=== PATIENT | female | born 1985 | race Hispanic/Latino ===

== ENCOUNTER 2018-04-02 17:59 | Emergency (ER) | payer BC, OTHER ==
[2018-04-02] MEDS ORDERED: METOCLOPRAMIDE 10 MG/2mL INJ ONE (18:44)
[2018-04-02] MEDS ORDERED: NA CHLORIDE 0.9% 1,000 ML ONE (18:44)
[2018-04-02] MEDS ORDERED: DIPHENHYDRAMINE 50 MG/ML VIAL ONE (18:46)
[2018-04-02 18:56] LABS: Absolute Lymphocytes (CBC) 1.9 K/uL (0.7-4.9); Absolute Monocytes 0.9 K/uL (0.1-1.3); Absolute Neutrophil 10.1 K/uL (1.8-8.0); Basophils % 0.5 % (0-1.3); Eosinophils % 0.4 % (0-4.4); Hematocrit 40.2 % (36.0-45.0); Lymphocytes % 14.9 % (15.3-44.8); MPV 8.2 fL (7.6-11.3); Monocytes % 6.6 % (3.3-12.3); RBC Red Blood Cell Count 4.44 M/uL (3.86-4.86)
--- NOTE | 2018-04-02 19:06 | RAD REPORT ---
EXAM DESCRIPTION: CT - Head Brain Wo Cont - 04/02/2018 6:55 pm CLINICAL HISTORY: Left-sided headache COMPARISON: None. TECHNIQUE: Axial 5 mm thick images of the head were obtained without IV contrast. All CT scans are performed using dose optimization technique as appropriate and may include automated exposure control or mA/KV adjustment according to patient size. FINDINGS: No intracranial hemorrhage, mass, edema or shift of mid-line structures. No acute infarcti on changes seen. No abnormal extra-axial fluid collections. Ventricles are normal. Mastoid air cells and visualized portions of the paranasal sinuses are clear. No acute bony findings. IMPRESSION: Negative non-contrast CT head examination.
[2018-04-02 19:10] LABS: BUN Blood Urea Nitrogen 9 mg/dL (7-18); Bicarbonate 23 mmol/L (21-32); Glucose Level 99 mg/dL (74-106); Potassium 3.4 mmol/L (3.5-5.1); Sodium Level 138 mmol/L (136-145)
--- NOTE | 2018-04-02 20:18 | RAD REPORT ---
EXAM DESCRIPTION: CT - Head angio - 04/02/2018 8:00 pm CLINICAL HISTORY: Left-sided, photophobia, nausea and vomiting TECHNIQUE: During dynamic enhancement using nonionic IV contrast, axial 1 millimeter thick images of the head were obtained. Sagittal and axial reconstruction images were generated using maximum intens ity projection protocol and reviewed. All CT scans are performed using dose optimization technique as appropriate and may include automated exposure control or mA/KV adjustment according to patient size. FINDINGS: No aneurysm or vascular malformation identified. Major venous sinuses are patent. No stenosis, named branch occlusion, vasculitis or other significant vascular finding identifiable. T he anterior cerebral, middle cerebral and posterior cerebral artery show no suspicious findings. No b asilar or distal vertebral artery suspicious finding. The cavernous portions of each internal carotid artery show tortuosity but otherwise unremarkable. IMPRESSION: Negative CT angio head examination.
--- NOTE | 2018-04-02 20:19 | RAD REPORT ---
EXAM DESCRIPTION: CT - Neck Angio - 04/02/2018 8:08 pm TECHNIQUE: During dynamic enhancement using nonionic IV contrast, axial 2 mm thick images of the nec k were obtained. Sagittal and axial reconstruction images were generated and reviewed. Reconstruction performed using maximum intensity projection protocol. All CT scans are performed using dose optimization technique as appropriate and may include automated exposure control or mA/KV adjustment according to patient size. FINDINGS: No aneurysm or vascular malformation identified. No carotid or vertebral dissection. No aortic arch or great vessel origin abnormality seen. Vertebral artery origins unremarkable as well . No stenosis, vasculitis or other significant carotid artery finding. No focal abnormality of either vertebral artery. Basilar artery is normal. IMPRESSION: Negative CT angio neck examination.
[2018-04-02] MEDS ORDERED: KETOROLAC 30 MG/ML INJ ONE (20:43)
[2018-04-02] MEDS ORDERED: DEXAMETHASONE 10 MG/ML VIAL ONE (20:43)
--- NOTE | 2018-04-02 20:58 | ER ---
Nurse's Notes [facility] Name: Weston Beaulieu Age: 32 yrs Sex: Female : 1985 Arrival Date: 04/02/2018 Time: 18:04 Bed 19 Private MD: Teto Garrett E Diagnosis: Headache Presentation: 04/02 18:23 Presenting complaint: Patient states: L sided headache since 10 am today, also reports ph N/V and sensitivity to light, states, " I took midol, BC powder and a muscle relaxer and nothing has really helped." Denies recent fever or illness. Transition of care: patient was not received from another setting of care. Onset of symptoms was April 02, 2018. Risk Assessment: Do you want to hurt yourself or someone else? Patient reports no desire to harm self or others. Initial Sepsis Screen: Does the patient meet any 2 criteria? No. Patient's initial sepsis screen is negative. Does the patient have a suspected source of infection? No. Patient's initial sepsis screen is negative. Care prior to arrival: None. 18:23 Method Of Arrival: Ambulatory 18:23 Acuity: ASHLEY 3 ph Triage Assessment: 18:28 Headache History: The patient has had previous headaches and this one is different than bp previous episodes. General: Appears in no apparent distress. comfortable, Behavior is cooperative, appropriate for age, anxious. Pain: Complains of pain in head Pain currently is 6 out of 10 on a pain scale. Pain began 8 HOURS AGO Also complains of no other associated symptoms. 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 - Social history:: Smoking status: Patient/guardian denies using tobacco. - Ebola Screening: : No symptoms or risks identified at this time. Screenin:31 Abuse screen: Denies threats or abuse. Denies injuries from another. Nutritional bp screening: No deficits noted. Tuberculosis screening: No symptoms or risk factors identified. Fall Risk None identified. Assessment: 18:29 General: Appears in no apparent distress. comfortable, Behavior is cooperative, bp appropriate for age, anxious. Pain: Complains of pain in head. Neuro: Level of Consciousness is awake, alert, obeys commands, Oriented to person, place, time, situation, Appropriate for age. Cardiovascular: No deficits noted. Respiratory: Airway is patent Respiratory effort is even, unlabored, Respiratory pattern is regular, symmetrical. GI: No signs and/or symptoms were reported involving the gastrointestinal system. : No signs and/or symptoms were reported regarding the genitourinary system. EENT: No deficits noted. Derm: No deficits noted. Musculoskeletal: Circulation, motion, and sensation intact. Range of motion: intact in all extremities. 19:07 Reassessment: Patient appears in no apparent distress at this time. No changes from [facility] previously documented assessment. Patient and/or family updated on plan of care and expected duration. Pain level reassessed. Patient is alert, oriented x 3, equal unlabored respirations, skin warm/dry/pink. Patient states feeling better. 20:00 Reassessment: Patient appears in no apparent distress at this time. Patient and/or jd3 family updated on plan of care and expected duration. Pain level reassessed. Patient is alert, oriented x 3, equal unlabored respirations, skin warm/dry/pink. Patient states feeling better. 20:54 Reassessment: Patient appears in no apparent distress at this time. Patient and/or jd3 family updated on plan of care and expected duration. Pain level reassessed. Patient is alert, oriented x 3, equal unlabored respirations, skin warm/dry/pink. Patient states feeling better. 21:11 Reassessment: Patient appears in no apparent distress at this time. Patient and/or jd3 family updated on plan of care and expected duration. Pain level reassessed. Patient is alert, oriented x 3, equal unlabored respirations, skin warm/dry/pink. Patient states feeling better. Vital Signs: 18:26 BP 125 / 82; Pulse 89; Resp 16; Temp 98.2; Pulse Ox 100% on R/A; Pain 6/10; ph 19:07 BP 113 / 92; Pulse 75; Resp 17 S; Pulse Ox 99% on R/A; jd3 20:00 BP 104 / 83; Pulse 76; Resp 15 S; Pulse Ox 100% on R/A; jd3 20:54 BP 128 / 88; Pulse 75; Resp 16 S; Pulse Ox 100% on R/A; jd3 ED Course: 18:04 Patient arrived in ED. sb2 18:04 Teto Garrett MD is Private Physician. sb2 18:18 [facility] jmm 18:18 Casimiro Jeong MD is Attending Physician. jmm 18:24 Donal Gonzalez, RN is Primary Nurse. bp 18:26 Triage completed. ph 18:28 Arm band placed on Patient placed in an exam room, on a stretcher. ph 18:31 Patient has correct armband on for positive identification. Placed in gown. Bed in low bp position. Call light in reach. Side rails up X2. Adult w/ patient. 18:41 Urine collected: clean catch specimen, clear. mh5 18:45 Inserted saline lock: 20 gauge in right antecubital area, using aseptic technique. bp Blood collected. 18:50 CT Head Brain wo Cont Sent. bp 18:55 CT Head Brain wo Cont In Process Unspecified. EDMS 19:[address] via wheelchair. vr 20:01 Head angio In Process Unspecified. EDMS 20:08 Neck Angio In Process Unspecified. EDMS 20:57 Charles Acevedo MD is Referral Physician. jmm 21:11 No provider procedures requiring assistance completed. IV discontinued, intact, jd3 bleeding controlled, No redness/swelling at site. Pressure dressing applied. Administered Medications: 18:45 Drug: NS 0.9% 1000 ml Route: IV; Rate: 1 bolus; Site: right antecubital; bp 21:12 Follow up: Response: No adverse reaction; IV Status: Completed infusion jd3 18:45 Drug: Reglan 10 mg Route: IVP; Site: right antecubital; bp 21:12 Follow up: Response: No adverse reaction jd3 18:45 Drug: diphenhydrAMINE 12.5 mg Route: IVP; Site: right antecubital; bp 21:13 Follow up: Response: No adverse reaction jd3 20:40 Drug: Ketorolac 30 mg Route: IVP; Site: right antecubital; jd3 21:13 Follow up: Response: No adverse reaction jd3 20:40 Drug: Decadron - Dexamethasone 10 mg Route: IVP; Site: right antecubital; jd3 21:13 Follow up: Response: No adverse reaction jd3 Outcome: 20:57 Discharge ordered by . georgiana 21:11 Discharged to home ambulatory, with family. jd3 21:11 Condition: stable 21:11 Discharge instructions given to patient, family, Instructed on discharge instructions, follow up and referral plans. medication usage, Demonstrated understanding of instructions, follow-up care, medications, Prescriptions given X 1. 21:13 Patient left the ED. jd3 Signatures: Dispatcher [employer] EDMS Joey Alarcon PA PA jmm Davis, Victoria vr Hall, Patricia, RN RN Josefina Casanova [facility] Phil Peterson RN RN Donal Soni RN RN Tri Villegas sb2
--- NOTE | 2018-04-02 20:58 | EDPHYS ---
Physician Documentation [facility] Name: Weston Beaulieu Age: 32 yrs Sex: Female : 1985 Arrival Date: 04/02/2018 Time: 18:04 Bed 19 Private MD: Teto Garrett E ED Physician Casimiro Jeong HPI: 04/02 18:31 This 32 yrs old Female presents to ER via Ambulatory with complaints of jmm Headache, Vomiting. 18:31 The patient complains of pain to the top of head, left orthodoxy, left temporal area and jmm left base of the skull. Onset: The symptoms/episode began/occurred gradually, 9.5 hour(s) ago. Associated signs and symptoms: Pertinent positives: vomiting. This is a 32 year old female with no chronic medical conditions that presents to the ED with left sided headache beginning at 10 am today. Headache is different in character to previous headaches. patient admits to history of chronic headache but has not had them evaluated. patient states the pain has decreased since taking a muscle relaxer. . 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 - Social history:: Smoking status: Patient/guardian denies using tobacco. - Ebola Screening: : No symptoms or risks identified at this time. ROS: 18:31 Constitutional: Negative for fever, chills, and weight loss, Cardiovascular: Negative jmm for chest pain, palpitations, and edema, Respiratory: Negative for shortness of breath, cough, wheezing, and pleuritic chest pain. 18:31 Back: Negative for injury and pain. 18:31 Abdomen/GI: Positive for vomiting. 18:31 Neuro: Positive for headache. 18:31 All other systems are negative. Exam: 18:31 Head/Face: atraumatic. Eyes: EOMI, no conjunctival erythema appreciated Chest/axilla: jmm Normal chest wall appearance and motion. Cardiovascular: Regular rate and rhythm. No edema appreciated Respiratory: Normal respirations, no respiratory distress appreciated Abdomen/GI: Non distended, soft Skin: General appearance color normal MS/ Extremity: Moves all extremities, no obvious deformities appreciated, no edema noted to the lower extremities Neuro: Awake and alert, normal gait 18:31 Constitutional: The patient appears in no acute distress, alert, awake. Vital Signs: 18:26 BP 125 / 82; Pulse 89; Resp 16; Temp 98.2; Pulse Ox 100% on R/A; Pain 6/10; ph 19:07 BP 113 / 92; Pulse 75; Resp 17 S; Pulse Ox 99% on R/A; jd3 20:00 BP 104 / 83; Pulse 76; Resp 15 S; Pulse Ox 100% on R/A; jd3 20:54 BP 128 / 88; Pulse 75; Resp 16 S; Pulse Ox 100% on R/A; jd3 MDM: 18:26 Patient medically screened. liz 18:28 Patient medically screened. [facility] 20:56 Data reviewed: vital signs, nurses notes. Counseling: I had a detailed discussion with georgiana the patient and/or guardian regarding: the historical points, exam findings, and any diagnostic results supporting the discharge/admit diagnosis, lab results, radiology results, the need for outpatient follow up, to return to the emergency department if symptoms worsen or persist or if there are any questions or concerns that arise at home. ED course: Headache relieved in the ED. Imaging studies negative. Neck is supple, patient is afebrile. I do not suspect SAH or meningitis. Patient advised to follow up with neuro. given strict return precautions. patient understood. . 04/02 18:29 Order name: CBC with Diff; Complete Time: 19:01 [facility] 04/02 18:29 Order name: Creatinine for Radiology; Complete Time: 19:36 [facility] 04/02 18:29 Order name: BMP; Complete Time: 19:36 [facility] 04/02 18:43 Order name: Urine Dipstick--Ancillary (enter results) 04/02 18:43 Order name: Urine --Ancillary (enter results) 04/02 19:01 Order name: Flu; Complete Time: 20:24 [facility] 04/02 18:29 Order name: CT Head Brain wo Cont; Complete Time: 19:07 [facility] 04/02 19:01 Order name: Stark Screen Profile; Complete Time: 20:24 [facility] 04/02 19:18 Order name: Head angio; Complete Time: 20:24 [facility] 04/02 19:18 Order name: Neck Angio; Complete Time: 20:24 [facility] 04/02 18:29 Order name: Urine Dipstick-Ancillary (obtain specimen); Complete Time: 18:42 [facility] 04/02 18:29 Order name: Urine Test (obtain specimen); Complete Time: 18:41 [facility] 04/02 18:29 Order name: Saline Lock; Complete Time: 18:50 [facility] Administered Medications: 18:45 Drug: NS 0.9% 1000 ml Route: IV; Rate: 1 bolus; Site: right antecubital; bp 21:12 Follow up: Response: No adverse reaction; IV Status: Completed infusion jd3 18:45 Drug: Reglan 10 mg Route: IVP; Site: right antecubital; bp 21:12 Follow up: Response: No adverse reaction jd3 18:45 Drug: diphenhydrAMINE 12.5 mg Route: IVP; Site: right antecubital; bp 21:13 Follow up: Response: No adverse reaction jd3 20:40 Drug: Ketorolac 30 mg Route: IVP; Site: right antecubital; jd3 21:13 Follow up: Response: No adverse reaction jd3 20:40 Drug: Decadron - Dexamethasone 10 mg Route: IVP; Site: right antecubital; jd3 21:13 Follow up: Response: No adverse reaction jd3 Disposition: 04/03 07:28 Co-signature as Attending Physician, Casimiro Jeong MD I agree with the assessment and liz plan of care. Disposition: 04/02/18 20:57 Discharged to Home. Impression: Headache. - Condition is Stable. - Discharge Instructions: General Headache Without Cause. - Prescriptions for Fiorinal 50- 325-40 mg Oral Capsule - take 1 capsule by ORAL route every 4 hours As needed - not to exceed 6 capsules per day; 20 capsule. - Medication Reconciliation Form, Thank You Letter, Antibiotic Education, Prescription Opioid Use form. - Follow up: Charles Acevedo MD; When: 2 - 3 days; Reason: Recheck today's complaints, Continuance of care, Re-evaluation by your physician. Signatures: Dispatcher [employer] Casimiro Dyson MD MD cha Mickail, Joel, PA PA Esther Mcnamara ph D, RN RNavies, Jonathon, RN RN jd3 Donal Gonzalez RN RN bp Corrections: (The following items were deleted from the chart) 04/02 21:13 20:57 04/02/2018 20:57 Discharged to Home. Impression: Headache. Condition is Stable. jd3 Forms are Medication Reconciliation Form, Thank You Letter, Antibiotic Education, Prescription Opioid Use. Follow up: Charles Acevedo; When: 2 - 3 days; Reason: Recheck today's complaints, Continuance of care, Re-evaluation by your physician. georgiana
[2018-04-02 21:27] LABS: Urine Blood NEGATIVE (NEG); Urine Glucose NEGATIVE (NEG); Urine Protein NEGATIVE (NEG)
== END 2018-04-02 21:13 | disposition home or self-care (01) ==
LOC: ER 17:59
DX: R51 Headache (principal)
CPT/HCPCS: 36415; 70450; 70496; 70498; 80048; 81003; 81025; 85025; 86308; 87804; 96361; 96374; 96375; 99284; J1100; J2765; J7030; Q9967